=== PATIENT | female | born 1965 | race Caucasian/White ===

== ENCOUNTER → 2016-12-26 | Outpatient (CLI) | payer BC ==
[~2016-12-26] MED LIST: AVLX/400; LRT5
--- NOTE | 2016-12-26 12:45 | DIAGNOSTIC IMAGING REPORT ---
THORACIC SPINE 3 VIEWS ROUTINE HISTORY: Pain LOWER BACK PAIN, SACRAL PAIN COMPARISON: None. FINDINGS: Mild scoliosis. Moderate degenerative disc change throughout the entire thoracic region. No acute compression deformity. No subluxation. IMPRESSION: Mild scoliosis. Moderate degenerative disc change throughout the entire thoracic region. The above report was generated using voice recognition software. It may contain grammatical, syntax or spelling errors. Electronically signed by: Ad Sterling M.D. 12/26/2016 12:43 PM Dictated Date/Time: 12/26/2016 12:43 PM
--- NOTE | 2016-12-26 12:48 | DIAGNOSTIC IMAGING REPORT ---
L-SPINE FLEX/EXT BENDING MIN 6 CLINICAL HISTORY: 51 years-old Female presenting with LOWER BACK PAIN, SACRAL PAIN. TECHNIQUE: Frontal, bilateral oblique, and lateral views of the lumbar spine with coned-down lateral view of the lumbosacral junction were obtained. COMPARISON: None. FINDINGS: Vertebral bodies maintain normal height and alignment. Intervertebral disc spaces preserved. Anterior osteophytosis noted at L1-2 and to a lesser extent at L2-3. No osseous neural foraminal narrowing. No radiographic evidence of acute fracture or subluxation. Transitional lumbosacral anatomy of the left L5 transverse process. Nonobstructive bowel gas pattern. IMPRESSION: Transitional lumbosacral anatomy of L5. Although this is most commonly asymptomatic, this can be a cause for back pain. Correlate clinically. No radiographic evidence of significant degenerative change or acute osseous injury. Electronically signed by: Raul Guzman M.D. 12/26/2016 12:47 PM Dictated Date/Time: 12/26/2016 12:44 PM
--- NOTE | 2016-12-26 12:55 | DIAGNOSTIC IMAGING REPORT ---
PELVIS/BILATERAL HIP 2 VIEWS CLINICAL HISTORY: 51 years-old Female presenting with LOWER BACK PAIN, SACRAL PAIN. TECHNIQUE: Single frontal view of the pelvis and frontal and frog-leg lateral views of the bilateral hips. COMPARISON: None. FINDINGS: Bilateral hip joints congruent. Sacroiliac joints unremarkable. Arcuate lines of the sacrum intact. Pubic symphysis congruent. No acute fracture or malalignment. Nonobstructive bowel gas pattern in the pelvis. IMPRESSION: No acute osseous injury of the pelvis or bilateral hips. Electronically signed by: Raul Guzman M.D. 12/26/2016 12:54 PM Dictated Date/Time: 12/26/2016 12:52 PM
== END | disposition home or self-care (01) ==
LOC: C.RDSM 11:44
PROVIDERS: ATTEND Physician Assistant
DX: M54.5 Low back pain (principal); M54.89 Other dorsalgia; M25.552 Pain in left hip

== ENCOUNTER → 2017-08-29 | Outpatient (CLI) | payer OTHER | LOC: C.PAPS 11:39 | PROVIDERS: ATTEND Obstetrics & Gynecology | DX: N93.8 Other specified abnormal uterine and vaginal bleeding (principal) ==

== ENCOUNTER → 2017-08-29 | Outpatient (CLI) | payer OTHER ==
[2017-08-29 12:22] LABS: HEMOGLOBIN 13.5 g/dL (12.0-16.0); MEAN CELL VOLUME 93.1 fL (80-100); MEAN CORPUSCULAR HEMOGLOBIN 32.2 pg (25-34); MEAN CORPUSCULAR HGB CONC 34.6 g/dl (32-36); PLATELET COUNT 280 K/uL (130-400); RED CELL DISTRIBUTION WIDTH CV 12.3 % (11.5-14.5); RED CELL DISTRIBUTION WIDTH SD 41.7 fL (36.4-46.3); WHITE BLOOD COUNT 8.22 K/uL (4.8-10.8)
== END ==
LOC: C.LAB1850 10:10
PROVIDERS: ATTEND Obstetrics & Gynecology
DX: N93.8 Other specified abnormal uterine and vaginal bleeding (principal)

== ENCOUNTER → 2017-09-22 | Outpatient (CLI) | payer OTHER ==
--- NOTE | 2017-09-25 08:09 | MAMMOGRAPHY REPORT ---
BILATERAL DIGITAL SCREENING MAMMOGRAM TOMOSYNTHESIS WITH CAD: 09/22/2017 CLINICAL HISTORY: Routine screening. Patient has no complaints. TECHNIQUE: Breast tomosynthesis in addition to standard 2D mammography was performed. Current study was also evaluated with a Computer Aided Detection (CAD) system. COMPARISON: Comparison is made to exams dated: 01/27/2015 mammogram, 12/25/2013 mammogram, 04/20/2010 mammogram - [facility], 06/10/2008, and 12/05/2007. BREAST COMPOSITION: There are scattered areas of fibroglandular density in both breasts. FINDINGS: No suspicious masses, calcifications, or areas of architectural distortion are noted in ei ther breast. There has been no significant interval change compared to prior exams. Bilateral asymme tries are stable, including a small focal asymmetry in the right 12:00 breast which is stable dating back to at least the 2013 exam. Scattered bilateral benign-appearing calcifications are also stable. IMPRESSION: ACR BI-RADS CATEGORY 2: BENIGN There is no mammographic evidence of malignancy. A 1 year screening mammogram is recommended. The pa tient will receive written notification of the results. Approximately 10% of breast cancers are not detected with mammography. A negative mammographic report should not delay biopsy if a clinically suggestive mass is present. Albina Vargas M.D. ah/:09/22/2017 15:43:31 Director Export: Ryann LIPSCOMB(Kavin)(M), [facility] letter sent: Normal 1/2 BI-RADS Code: ACR BI-RADS Category 2: Benign
== END | disposition home or self-care (01) ==
LOC: C.MAMM 14:46
PROVIDERS: ATTEND Physician Assistant
DX: Z12.31 Encounter for screening mammogram for malignant neoplasm of breast (principal)

== ENCOUNTER → 2017-09-25 | Outpatient (CLI) | payer OTHER | END | disposition home or self-care (01) | LOC: C.PATHSPEC 13:27 | PROVIDERS: ATTEND Obstetrics & Gynecology | DX: N93.8 Other specified abnormal uterine and vaginal bleeding (principal) ==

== ENCOUNTER 2020-08-28 07:31 | Inpatient (IN) ==
--- NOTE | 2020-08-10 14:39 | PAT Medication Instructions ---
Medication Instructions Date of Service August 10, 2020 Home Medications albuterol sulfate 2 puff INHALATION Q4H PRN fluticasone furoate-vilanterol [Breo Ellipta] 1 inh INHALATION QAM meloxicam 7.5 mg PO BID PRN montelukast 10 mg PO HS ASK your surgeon for instructions meloxicam 7.5 mg PO BID PRN Take morning of surgery With a small sip of water, OTHERWISE NOTHING TO EAT OR DRINK AFTER MIDNIGHT: albuterol sulfate 2 puff INHALATION Q4H PRN (if needed) fluticasone furoate-vilanterol [Breo Ellipta] 1 inh INHALATION QAM Take evening before surgery albuterol sulfate 2 puff INHALATION Q4H PRN (if needed) montelukast 10 mg PO HS Other Notes If you have any questions please call us at [phone] or [phone] or [phone] or [phone]
--- NOTE | 2020-08-11 11:27 | Anesthesiology Consultation ---
Date of Service August 11, 2020 Assessment & Plan (1) Encounter for pre-operative examination: COVID Status: As of 08/11 assessment, patient denies travel to endemic area, known exposure/sick contacts, or symptoms of COVID19. Patient instructed that they and their household members must follow strict social distancing guidelines, wear a mask in public and avoid travel/events/gatherings for 14 days prior to surgery. Preoperative COVID19 testing to be completed prior to surgery per surgeon's arrangements (08/21). Patient made aware to self-isolate as much as possible between COVID testing and surgery. Chart Review Chart Review: Acceptable Risk for Surgery and Patient seen in Pre Admission Testing Teaching & Discussion Instructed NPO after midnight before surgery, except medications with 15 cc of water. Medication instructions provided according to the PAT guidelines. History Surgery Operation Date: 08/28/20 12:45 Proposed Procedures p C6 Corpectomy, Spinal Cord Monitoring - Emmett Bolivar, Height/Weight Height: 5 ft 1 in Weight: 70.5 kg Allergies Allergy/AdvReac Type Severity Reaction Status Date / Time Penicillins Allergy Intermediate TONGUE Verified 08/04/20 08:34 SWELLING Medications Home Medications Medication Instructions Recorded Confirmed Last Taken albuterol sulfate 2 puff INHALATION Q4H PRN 08/04/20 08/04/20 Unknown fluticasone furoate-vilanterol 1 inh INHALATION QAM 08/04/20 08/04/20 Unknown [Breo Ellipta] meloxicam 7.5 mg PO BID PRN 08/04/20 08/04/20 Unknown montelukast 10 mg PO HS 08/04/20 08/04/20 Unknown Past Medical History Medical History Asthma Daily Breo, albuterol once/month on average Chronic back pain NECK AND ON OCC LOWER BACK Chronic obstructive pulmonary disease Pre-diabetes LOST WT INTENTIONALLY-15 LBS-NO MEDS Temporomandibular joint disorder RIGHT SIDE CLICKS ON OCC-NO LOCKING Exercise / Class Metabolic Activity II 4-5 Yardwork/Stairs/Walk up hill Past Family History Family History Aunt Family history of diabetes mellitus Uncle Family history of diabetes mellitus Past Surgical History Surgical History History of section X 2 History of colonoscopy AGE 51 History of tonsillectomy S/P wrist surgery LEFT LIGAMENT REPAIR Past Anesthesia History No Hx of Anesthesia Complications and No Family Hx of Anesthesia Complications History of PONV No Hx of PONV and No Hx of Motion Sickness STOP BANG Total 1 Social History Smoking Status: Current every day smoker Smoking cigarettes per day: 5 CIGS A DAY Do You Dip or Chew Tobacco: No Hx Alcohol Use: No Hx Substance Use: No Review of Systems Pt denies any recent chest pain, shortness of breath, palpitations, cough, fever, URI, or uncontrolled acid reflux. Physical Exam Vital Signs BP: 106/69 P: 75bpm SPO2: 96% RA T: 97.9 F R: 16 ENMT Mouth: + dentures (partial, but does not wear them); no chipped teeth and no loose teeth Thyromental Distance: > or= 3.5 Finger Breadths Mallampati Class: I Neck normal visual inspection; neck extension not limited Respiratory Auscultation: + rhonchi (expiratory, especially in bases) and + wheezes (inspiratory, diffuse) Cardiovascular RRR, no murmur, no edema Testing Laboratory Results 08/11/20 11:30 08/11/20 11:30 PT 10.3 Seconds (9.0-12.0) 08/11/20 11:30 INR 1.0 (0.9-1.1) 08/11/20 11:30 APTT 26.3 Seconds (21.0-31.0) 08/11/20 11:30 Urine Color Yellow 08/11/20 11:30 Urine Appearance Clear (Clear) 08/11/20 11:30 Urine pH 8.0 (4.5-7.5) H 08/11/20 11:30 Ur Specific [place] 1.008 (1.000-1.030) 08/11/20 11:30 Urine Protein Negative (Negative) 08/11/20 11:30 Urine Glucose (UA) Negative (Negative) 08/11/20 11:30 Urine Ketones Negative (Negative) 08/11/20 11:30 Urine Nitrite Negative (Negative) 08/11/20 11:30 Ur Leukocyte Esterase Negative (Negative) 08/11/20 11:30 Blood Type O Negative 08/11/20 11:30 Antibody Screen NEGATIVE 08/11/20 11:30 Electrocardiogram Date: 12/23/19 Findings: + NSR @ (76bpm) RSR' or QR pattern in V1 suggests RVCD. Chest X-Ray Date: 08/11/20 Findings: + NAD
[2020-08-11 12:22] LABS: Basophils # (auto) 0.01 K/uL (0-0.2); Basophils % (auto) 0.1 %; Hematocrit (blood only) 38.3 % (37-47); Hemoglobin 13.4 g/dL (12.0-16.0); Immature Granulocytes # (auto) 0.06 K/uL (0.00-0.02); Immature Granulocytes % (auto) 0.7 %; Lymphocytes # (auto) 1.11 K/uL (1.2-3.4); Lymphocytes % (auto) 12.8 %; Mean Corpuscular Volume 94.3 fL (80-100); Mean Platelet Volume 9.1 fL (7.4-10.4); Monocytes % (auto) 3.5 %; Neutrophils % (auto) 82.9 %; Platelet Count 292 K/uL (130-400); RDW Standard Deviation 45.2 fL (36.4-46.3); Red Blood Count 4.06 M/uL (4.2-5.4); White Blood Count 8.68 K/uL (4.8-10.8)
[2020-08-11 12:23] LABS: Appearance Urine Clear (Clear); Bilirubin Urine Negative (Negative); Blood Urine Negative (Negative); Color Urine Yellow; Glucose Urine UA Negative (Negative); Ketones Urine Negative (Negative); Leukocyte Esterase Urine Negative (Negative); Nitrite Urine Negative (Negative); Protein Urine Negative (Negative); Specific Gravity Urine 1.008 (1.000-1.030); Urobilinogen Urine Negative (Negative)
[2020-08-11 12:32] LABS: Partial Thromboplastin Time 26.3 Seconds (21.0-31.0); Prothrombin Time 10.3 Seconds (9.0-12.0)
--- NOTE | 2020-08-11 12:43 | XRay Report ---
XR chest Pre-admission PA/Lat HISTORY: 55 years-old Female pat preoperative exam. No acute chest complaints COMPARISON: Chest radiographs 05/21/2014 TECHNIQUE: PA and lateral views of the chest FINDINGS: Cardiomediastinal and hilar silhouettes are within normal limits. There is no pneumothorax, pleural e ffusion, airspace consolidation or overt pulmonary edema. Bones of the chest appear grossly intact. IMPRESSION: No acute process. ACT 112: Negative or not required by law. The above report was generated using voice recognition software. It may contain grammatical, syntax o r spelling errors. Electronically signed by: Richi Sims M.D. 08/11/2020 12:42 PM
[2020-08-11 14:10] LABS: BUN Creatinine Ratio 16.3 (10-20); Calcium 8.9 mg/dl (8.5-10.1); Est GFR (African American) 99.9; Est GFR (Non-African American) 86.2; Potassium 3.8 mmol/L (3.5-5.1)
[~2020-08-28 07:31] MED LIST changes: +ACETAMINOPHEN 500 MG TAB PO SCH; -AVLX/400; +CLINDAMYCIN 600 MG/54 ML BAG IV SCH; +CeleBREX 200 MG CAP PO SCH; +GABAPENTIN 900 MG DOSE PO SCH; +LR 15ML/HR IV SCH; -LRT5; +MIDAZOLAM HCL 1 MG/ML 2ML VIAL ONE; +fentaNYL citrate 100 MCG/2 ML VIAL ONE
--- NOTE | 2020-08-28 08:40 | History & Physical Bridge Note ---
Date of Service August 28, 2020 History & Physical Bridge Note I have examined the patient, reviewed the History & Physical and in the interval since the performance of the History & Physical I have noted the following changes of clinical significance: no changes noted
--- NOTE | 2020-08-28 08:40 | History & Physical Report ---
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 Failing course of nonoperative care she is here for surgical invention. Allergies Allergy/AdvReac Type Severity Reaction Status Date / Time Penicillins Allergy Intermediate TONGUE Verified 08/28/20 08:07 SWELLING Home Medications Medication Instructions Recorded Confirmed Type albuterol sulfate 2 puff INHALATION Q4H PRN 08/04/20 08/28/20 History fluticasone furoate-vilanterol 1 inh INHALATION QAM 08/04/20 08/28/20 History [Breo Ellipta] meloxicam 7.5 mg PO BID PRN 08/04/20 08/28/20 History montelukast [Singulair] 10 mg PO HS 08/04/20 08/28/20 History Past Med/Surg History Medical History Asthma Daily Breo, albuterol once/month on average Chronic back pain NECK AND ON OCC LOWER BACK Chronic obstructive pulmonary disease Pre-diabetes LOST WT INTENTIONALLY-15 LBS-NO MEDS Temporomandibular joint disorder RIGHT SIDE CLICKS ON OCC-NO LOCKING Surgical History History of section X 2 History of colonoscopy AGE 51 History of tonsillectomy S/P wrist surgery LEFT LIGAMENT REPAIR Family History Aunt Family history of diabetes mellitus Uncle Family history of diabetes mellitus Social History Smoking Status: Current every day smoker Cigarettes Per Day: 5 CIGS A DAY; Second Hand Exposure: Yes (PARENTS SMOKED/SO LUISANA SMOKES); Do You Dip or Chew Tobacco: No; Hx Alcohol Use: No Hx Substance Use: No Preferred Language: Palestinian Communication Ability: Effective Cheese Weigher Required: No Beliefs That Will Affect Care: None Current Living Situation: Significant Other Other Information That Helps Us Care for You: No Feels Safe at Home: Yes Safety Concerns: Feels Safe At This Time Assistive Devices: Denture - Upper and Glasses Assistive Devices Comment: PARTIALS-DOES NOT WEAR Physical Exam Physical Exam: Patient is alert and oriented Heart regular in rhythm Lungs clear to auscultation Results & Data ([facility]) Vital Signs (Past 12 Hours) Vital Signs Temp Pulse Resp BP Pulse Ox 08/28/20 08:08 36.7 C 80 18 142/83 H 97
[2020-08-28] MEDS ORDERED: ALBUT/IPRATROP 3MG/0.5MG NEB 3 ML VIAL NEB STA (08:42)
[2020-08-28] MEDS ORDERED: HYDROmorphone INJ 2 MG/ML SYR/VIAL IV PRN (08:44)
[2020-08-28] MEDS ORDERED: PROMETHAZINE HCL 12.5 MG in SODIUM CHLORIDE 0.9% 50 ML IV PRN ×2 (08:44→12:46)
[2020-08-28] MEDS ORDERED: ePHEDrine sulfate 50 MG/ML AMP IV PRN (08:44)
[2020-08-28] MEDS ORDERED: ATROPINE SULFATE 0.1 MG/ML 10ML SYR IV PRN (08:44)
[2020-08-28] MEDS ORDERED: ONDANSETRON INJ 2 MG/ML 2 ML VIAL IV PRN ×2 (08:44→12:46)
[2020-08-28] MEDS ORDERED: BACITRACIN INJ 50,000 UNIT VIAL ONE (09:04)
[2020-08-28] MEDS ORDERED: PROPOFOL IV EMULSION 10 MG/ML 20 ML VIAL IV ONE (09:48)
[2020-08-28] MEDS ORDERED: NEOSTIGMINE METHYLSULFATE 1 MG/ML 10ML VIAL ONE (09:48)
[2020-08-28] MEDS ORDERED: GLYCOPYRROLATE 0.2 MG/ML VIAL ONE (09:48)
[2020-08-28] MEDS ORDERED: LARYING-O-JET KIT (LTA) ONE (09:48)
[2020-08-28] MEDS ORDERED: ONDANSETRON INJ 2 MG/ML 2 ML VIAL ONE (09:48)
[2020-08-28] MEDS ORDERED: LIDOCAINE HCL 2% 2 ML VIAL/AMP(20MG/ML) INFIL ONE (09:48)
[2020-08-28] MEDS ORDERED: DEXAMETHASONE SOD INJ 4 MG/ML VIAL ONE (09:48)
[2020-08-28] MEDS ORDERED: fentaNYL citrate 100 MCG/2 ML VIAL ONE (09:49)
[2020-08-28] MEDS ORDERED: FLOSEAL HEMOSTATIC MATRIX 10ML TOP ONE (09:56)
[2020-08-28] MEDS ORDERED: SUCCINYLCHOLINE 100MG/5ML SYR IV ONE (10:00)
[2020-08-28] MEDS ORDERED: ROCURONIUM BROMIDE 10 MG/ML 5 ML VIAL IV ONE (10:46)
--- NOTE | 2020-08-28 10:53 | Operative Report ---
Post Operative Report Pre & Post Diagnosis Operation Date: 08/28/20 09:10 Pre-Op Diagnosis: Spinal Stenosis, Cervical Region Post-Op Diagnosis: Spinal Stenosis, Cervical Region I identified the patient and participated in the time-out.: Yes Procedure Operation Date: 08/28/20 09:10 Actual Procedures #1 Anterior cervical corpectomy with bilateral foraminotomies C6. #2 anterior cervical arthrodesis C5-C7. #3 placement of 20 mm peek cage C5-C7. #4 placement of locally harvested morselized autograft combined with I factor in the interbody cage. #5 application of person plate and screws across C5-C6. Surgeon Emmett Bolivar, DO Nuclear Test Technician Trever Crowder Estimated Blood Loss 50 Findings Consistent with Post-Op Diagnosis Specimens None Indications This is a 55-year-old female presents with above-mentioned diagnosis after failing course of nonoperative care is here for surgical invention. Description of Procedure Patient met with identified informed consent obtained. Patient was then taken to the operative suite underwent ablation placed in spine position Jose Daniel table head Hoang head ordered. All bony prominences well-padded eyes inspected to ensure no external pressure placed upon the. This point the anterior cervical spine was prepped and draped in a sterile fashion. The assistance of fluoroscopy identified the C6 vertebral body and a transverse incision was placed along the right anterior aspect of the cervical spinal lines region. Sharp dissection with assistance of bipolar electrocautery performed down to and exposing anterior cervical spine from C5-C7. Self-retaining retractors placed. Then performed a complete discectomy of C5-6 out to the uncovertebral joints bilaterally followed by C6-C7. Self-retaining retractors placed. Then performed a complete discectomy of C5-6 out to the uncovertebral joints bilaterally followed by C6-C7. [place] distraction pins were then placed in C5 and c 7 to distract across the C6 vertebral body. I then performed a complete corpectomy of C6 including removal of all posterior annular fibers longitudinal ligament bilateral foraminotomies performed. The endplates were then burred to subcortical leading bone and a 23 mm peek cage filled with locally harvested morselized autograft and I factor tapped in position. Distracting apparatus was removed all anterior osteophytes burred to a smooth cortical surface and a 5 complete screws applied with the assistance of fluoroscopy. The incision was then copiously irrigated explored to ensure no damage to surrounding structures remaining bleeding. 10 round HIMANSHU drain inserted. Incision was then closed with 2 Vicryl in the fashion of 4 Monocryl for final skin closure. Steri-Strips dressings placed. Patient will continue PACU stable condition. Please note spinal cord monitoring was utilized at the procedure no changes noted. Lastly Trever Crowder was present at the entire procedure involved the patient positioning complex portions of the surgery and final skin closure. I attest to the content of the Intraoperative Record and any orders documented therein. Any exceptions are noted below.
--- NOTE | 2020-08-28 11:12 | Fluoroscopy Report ---
FL cervical 2-3V CLINICAL HISTORY: C6 CORPECTOMY COMPARISON STUDY: None FLUOROSCOPY TIME: 12 seconds. NUMBER OF FLUOROSCOPIC IMAGES: 2 FINDINGS: 2 intraoperative fluoroscopic spot images reveal postsurgical changes of a C6 corpectomy. T here is anterior metallic plate with C5 and C7 screws. IMPRESSION: Intraoperative fluoroscopic spot images revealing postsurgical changes of a C6 corpectom y and anterior fusion. ACT 112: Negative or not required by law. Electronically signed by: Alexis Fontanez M.D. 08/28/2020 11:11 AM
[2020-08-28] MEDS: fentaNYL citrate 100 MCG/2 ML VIAL IV PRN ×2 (11:25→11:42)
--- NOTE | 2020-08-28 11:27 | Anesthesiology Progress Note ---
Date of Service August 28, 2020 Anesthesia Post Procedure Vital Signs Vital Signs: Temp Pulse Resp BP Pulse Ox 08/28/20 09:07 80 16 99 08/28/20 08:08 36.7 C 80 18 142/83 H 97 Transfer of Care Handoff Completed per policy Notes Mental Status: alert / awake / arousable and participated in evaluation Patient Amnestic to Procedure: Yes Nausea / Vomiting: adequately controlled Pain: adequately controlled Airway Patency, RR, SpO2: stable & adequate BP & HR: stable & adequate Hydration State: stable & adequate Anesthetic Complications: no major complications apparent and Pt Satisfied with anesthetic care
[2020-08-28] MEDS ORDERED: DO NOT ADMINISTER PNEUMOCOCCAL VACCINE PRN (12:46)
[2020-08-28] MEDS ORDERED: FAMOTIDINE 20 MG TAB PO PRN (12:46)
[2020-08-28] MEDS ORDERED: ACETAMINOPHEN 500 MG TAB PO PRN (12:46)
[2020-08-28] MEDS ORDERED: SOD PHOSPHATE/SOD BIPHOSPHATE ENEMA 132 ML BTL PR PRN (12:46)
[2020-08-28] MEDS ORDERED: ONDANSETRON 4 MG OD TAB PO PRN (12:46)
[2020-08-28] MEDS ORDERED: dexAMETHasone 8 MG in SYRINGE 0 ML IV PRN (12:46)
[2020-08-28] MEDS ORDERED: METOCLOPRAMIDE HCL INJ 5 MG/ML 2 ML VIAL IV PRN (12:46)
[2020-08-28] MEDS ORDERED: LORazepam 0.5 MG/1 ML VIAL IV PRN (12:46)
[2020-08-28] MEDS ORDERED: NALOXONE HCL 0.4 MG/1 ML VIAL/CARP IV PRN (12:46)
[2020-08-28] MEDS ORDERED: MAGNESIUM HYDROXIDE SUSP 30 ML UDC PO PRN (12:46)
[2020-08-28] MEDS ORDERED: oxyCODONE HCL IR 5 MG TAB (IMMEDIATE RELEASE) PO PRN (12:46)
[2020-08-28] MEDS ORDERED: ALUMINUM/MAGNESIUM SUSP 30 ML UDC PO PRN (12:46)
[2020-08-28] MEDS ORDERED: traMADol HCL 50 MG TABLET PO PRN (12:46)
[2020-08-28] MEDS ORDERED: hydrOXYzine HCl 25 MG TAB PO PRN (12:46)
[2020-08-28] MEDS ORDERED: DO NOT ADMINISTER FLU VACCINE PRN (12:46)
[2020-08-28] MEDS ORDERED: diphenhydrAMINE Capsule 25 MG CAP PO PRN (12:46)
[2020-08-28] MEDS ORDERED: RACEPINEPHRINE 2.25% NEBU SOLN 0.5 ML VIAL INH PRN (12:46)
[2020-08-28] MEDS ORDERED: ACETAMINOPHEN 1,000 MG/100 ML VIAL IV PRN (12:46)
[2020-08-28] MEDS ORDERED: HYDROmorphone INJ 1 MG/ML SYRINGE IV PRN (12:46)
[2020-08-28] MEDS ORDERED: LORazepam 0.5 MG TAB PO PRN (12:46)
--- NOTE | 2020-08-28 13:13 | Hospitalist Consultation ---
Date of Consultation August 28, 2020 Assessment & Plan (1) Cervical radiculopathy: (2) History of cervical spinal surgery: - Pain management, bowel regimen ordered, no DVT ppx status post spinal surgery per the primary team - PT/OT consults, CM to assist with discharge planning - Follow am CBC to monitor for acute blood loss, follow HIMANSHU drain outs (3) Chronic back pain: - Secondary to the above, continue pain management (4) Chronic obstructive pulmonary disease: - Continue Breo Ellipta, albuterol inh, Singular - Encourage tobacco cessation-discussed at bedside-patient smokes 5 to 6 cigarettes daily, started at age 6. Discussed improved healing with smoking cessation and the patient expressed understanding, she is encouraged to possibly quit smoking during this admission as she has not felt the need for cigarette throughout her time here. - Continuous pulse ox monitoring (5) Asthma: - Stable, inhalers as above (6) Pre-diabetes: - Not on medication, lost about 15 lbs of weight 2 years ago, however has gained much of this back - Follow glucose with BMP. A1c as per PCP (7) DVT prophylaxis: - teds, scds CODE: Full code Dispo: From home, likely to remain in the hospital x 1-2 days. Thank you for involving us in the care of Ms Mcintyre. Please do not hesitate to call with questions or concerns. At this time medicine service will follow along. Supervising Physician Co-Signing Physician Notes I have seen and examined the patient and have discussed the case with the provider above. I agree with the assessment and plan as stated. She is doing well post-operatively. She does have a chronic cough and some wheezing on exam which she reports is chronic. She denies any SOB, fevers or chills. She denies any other symptoms at this time. Reviewed medication list and agree with above. Thank you for this consultation. We will follow with this patient throughout their hospitalization. DO Sunday History of Present Illness Reason for Consultation: Medical management Requesting Physician: Dr. Bolivar Attending Physician: Emmett Bolivar DO History of Present Illness This is a 55 yo F with PMHx of chronic back pain, COPD, asthma, pre-diabetes, current tobacco use, who presented for elective C6 corpectomy with bilateral foraminotomies, cage placement from C5-C7 by Dr. Bolivar on 08/28/20. The patient is doing well s/p surgery. She denies pain in the neck or back currently, and reports that she received Dilaudid around 11:30 AM last which has made her feel much more relaxed. Patient tolerated some clear liquids at lunch without any difficulty, no dysphagia or swelling in her mouth, tongue or throat, no nausea or vomiting. Patient is still smoking, 5 to 6 cigarettes/day and started when she was 6 years old, as her her father encouraged his children to smoke cigars with him occasionally. Patient reports that she had lost about 15 pounds 2 years ago when she was told she was prediabetic, unfortunately has gained the majority of this weight back since she has been unable to participate in large amounts of activity due to her chronic back pain/neck pain. She is hopeful that she will be able to lose a bit of weight after the surgery wand pain improvement. Pt reports living at home with her boyfriend who was recently laid off for the next 2 weeks, therefore has help for whenever she is discharged home. Allergies Allergy/AdvReac Type Severity Reaction Status Date / Time Penicillins Allergy Intermediate TONGUE Verified 08/28/20 08:07 SWELLING Home Medications Medication Instructions Recorded Confirmed Type Breo Ellipta 1 inh INHALATION QAM 08/04/20 08/28/20 History albuterol sulfate 2 puff INHALATION Q4H PRN 08/04/20 08/28/20 History meloxicam 7.5 mg PO BID PRN 08/04/20 08/28/20 History montelukast [Singulair] 10 mg PO HS 08/04/20 08/28/20 History oxycodone 5 mg PO Q6H PRN #2 tab 08/29/20 Rx tramadol 50 mg PO Q6H PRN #20 tab 08/29/20 Rx Patient History Medical History (Updated 08/28/20 @ 13:07 by Kenya Clemons PA-C) Asthma Daily Breo, albuterol once/month on average Chronic back pain NECK AND ON OCC LOWER BACK Chronic obstructive pulmonary disease Pre-diabetes LOST WT INTENTIONALLY-15 LBS-NO MEDS Temporomandibular joint disorder RIGHT SIDE CLICKS ON OCC-NO LOCKING Surgical History (Updated 08/28/20 @ 13:07 by Kenya C Filipowicz, PA-C) History of section X 2 History of colonoscopy AGE 51 History of tonsillectomy S/P wrist surgery LEFT LIGAMENT REPAIR Family History Aunt Family history of diabetes mellitus Uncle Family history of diabetes mellitus Social History Smoking Status: Current every day smoker Cigarettes Per Day: 5 CIGS A DAY; Second Hand Exposure: Yes (PARENTS SMOKED/SO LUISANA SMOKES); Do You Dip or Chew Tobacco: No; Hx Alcohol Use: No Hx Substance Use: No Preferred Language: [place] Islander Communication Ability: Effective Hospital Internship Required: No Beliefs That Will Affect Care: None marital status: Life Partner Current Living Situation: Significant Other Other Information That Helps Us Care for You: No Feels Safe at Home: Yes Safety Concerns: Feels Safe At This Time Assistive Devices: Brace/Splint/Immobilizer Assistive Devices Comment: PARTIALS-DOES NOT WEAR Review of Systems Review of Systems: Constitutional: No fever, sweats or chills Eyes: No diplopia, no worsening or blurred vision ENT: normal hearing, no trouble swallowing Respiratory: + Occasional dry smokers cough, no sputum, dyspnea at rest or on exertion Cardiovascular: No chest pain, tightness or palpitations Abdomen: No pain, nausea, vomiting, diarrhea or constipation Musculoskeletal: No joint pain, calf pain, swelling Neurologic: No weakness, numbness/tingling, or balance problems Psychiatric: No anxiety or depression Skin: No rash or itch Physical Exam Physical Exam: General: awake, alert, no apparent distress, BMI 28.9 Head: Normocephalic, atraumatic ENT: PERRL, EOMI, no pharyngeal exudate, mucous membranes moist Neck: Anterior dressing C/D/I, HIMANSHU drain in place draining small amount of serosanguineous fluids, cervical collar in place. Chest: Clear to auscultation, on 2L via NC, no adventitious breath sounds Cardiac: Regular rate and rhythm, no murmur, no JVD, normal peripheral pulses, good capillary refill Abdominal: NABS x 4 quadrants, soft, nondistended, nontender to palpation, no rebound or guarding Extremities: Normal inspection, no peripheral edema or erythema, calfs nontender to palpation Psych: Normal mood and affect Neuro: AAO x 3, strength intact bilaterally and rated 5/5, no motor deficits, speech is clear, no peripheral sensory deficits Results & Data Results & Data ([facility]) Vital Signs (Past 12 Hours) Vital Signs Temp Pulse Pulse Resp BP Pulse Ox 08/28/20 12:20 77 13 153/89 H 95 08/28/20 12:10 70 20 150/88 H 96 08/28/20 12:00 36.3 C L 63 18 155/88 H 94 08/28/20 11:50 62 19 151/87 H 96 08/28/20 11:40 63 18 136/81 98 08/28/20 11:30 69 20 154/94 H 99 08/28/20 11:20 69 16 148/86 H 100 08/28/20 11:13 36.5 C 75 21 162/92 H 99 08/28/20 09:07 80 16 99 08/28/20 08:08 36.7 C 80 18 142/83 H 97
[2020-08-28] MEDS: ALBUTEROL HFA 8 GM INHALER INH PRN ×2 (16:29→22:08)
[2020-08-28] MEDS: CLINDAMYCIN 600 MG in DEXTROSE 5% 50 ML IV SCH (17:49)
[2020-08-28] MEDS: LACTATED RINGER'S 1,000 ML IV SCH (19:52)
[2020-08-28] MEDS: HYDROmorphone INJ 0.5 MG/0.5 ML SYR IV PRN (19:52)
[2020-08-28] MEDS ORDERED: DOCUSATE SODIUM/SENNA 50/8.6MG TAB PO SCH (21:00)
[2020-08-28] MEDS ORDERED: MONTELUKAST SODIUM 10 MG TABLET PO SCH (21:00)
[2020-08-29] MEDS: HYDROmorphone INJ 0.5 MG/0.5 ML SYR IV PRN (00:14)
[2020-08-29] MEDS: LACTATED RINGER'S 1,000 ML IV SCH (00:42)
[2020-08-29] MEDS: CLINDAMYCIN 600 MG in DEXTROSE 5% 50 ML IV SCH (01:51)
[2020-08-29] MEDS: POLYETHYLENE (MIRALAX) 17 GM PACK PO SCH ×2 (05:37→11:41)
[2020-08-29] MEDS ORDERED: FLUTICASONE/VILANTEROL 100/25MCG 14 PUFFS/INHALER INH SCH (09:00)
--- NOTE | 2020-08-29 10:32 | Discharge Summary ---
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 Failing course of nonoperative care she is here for surgical invention. Principal Diagnosis Cervical spinal stenosis with radiculopathy Discharge Data Allergies Allergy/AdvReac Type Severity Reaction Status Date / Time Penicillins Allergy Intermediate TONGUE Verified 08/28/20 08:07 SWELLING Consultations 08/28/20 12:46 Consult Hospitalist Routine Procedures Performed Operation Date: 08/28/20 09:10 Actual Procedures p C6 Corpectomy, Spinal Cord Monitoring(Not Applicable) - Emmett Bolivar DO Ordered Studies 08/28/20 09:10 FL cervical 2-3V Routine FL fluoroscopy <1hr Routine Hospital Course (1) Cervical radiculopathy: Patient went anterior cervical discectomy fusion tolerated so was taken to orthopedic for possibly. Postop day 1 she was swallowing well no hoarseness. Arm symptoms markedly improved. HIMANSHU drain decreasing appropriately. Excellent strength testing. Subsequently discharged home. Discharge orders instructions were on the chart for further review. Total Time Total Time Spent Total Time Spent (In Minutes): 20 minutes Discharge Plan Discharge Items Patient Disposition: Home - Self-Care Reason For Visit: Spinal Stenosis, Cervical Region Discharge Diagnosis: Cervical spinal stenosis with myeloradiculopathy Activity: As commented below Non-emergency contact: Primary Care Provider Call non-emergency contact if: you have any medication questions Follow-up/Referrals: Chelsea Carey CRNP [Primary Care Provider] - Diet: Regular Addtl Attending Provider Instructions: ACTIVITY RECOMMENDATIONS: SELF CARE INSTRUCTIONS AFTER CERVICAL FUSIONS 1. No smoking. Smoking drastically decreases the chance of a solid fusion. 2. No bending, lifting more than 5 pounds, or twisting (roll like a log when turning in bed). 3. You may shower 3 days after surgery. Thoroughly dry wound. Do not soak in the tub. 4. Cervical collar: Must be worn at all times including sleeping. You may remove the brace only to bath, eat and if you are sitting in a recliner. 5. Please walk as much as you can for exercise. Gradually increase the distance that you walk as your endurance increases. SPECIAL CARE INSTRUCTIONS: VERY IMPORTANT TO READ AND REVIEW A. Do not take any anti-inflammatory medications (i.e. Indocin, Advil, Aspirin, Naprosyn, Aleve, Motrin, etc.) as these may inhibit the chance of a solid fusion. Tylenol is okay to take. B. Your surgical incision has been closed with a cosmetic suture under the skin that will dissolve in about 6 weeks. In 14 days, you can use a pair of clean scissors and cut the suture that is left outside of the skin at the ends of your incision. C. Complications are uncommon, but please contact us if you have any signs or symptoms of: 1. wound infection (fever higher than 102.5 degrees F, redness, separation of wound, drainage, or increasing pain from the incision) 2. blood clots in legs (pain, swelling, redness and warmth in legs) 3. urinary tract infection (fever higher than 102.5 degrees, burning upon urination or increased frequency of urination) 4. nerve problems (inability to walk on your toes or heels, numbness, loss of bowel or bladder control) 5. any other symptoms that concern you. D. Please call the office at if you have any concerns or questions about your operation or recovery. MANAGING PAIN AFTER SPINAL SURGERY 1. Narcotic medication is intended for short-term use and will be provided for surgical pain. Surgical pain usually lasts for a period of 4-6 weeks. Narcotic medication includes Percocet, Vicodin, Darvocet, Tylenol #3 or Lortab. 2. Longer-term pain is more appropriately treated with non-narcotic medication such as Tylenol ES. 3. Muscle spasm is not appropriately treated with narcotics. Muscle relaxers such as Soma, Flexeril or Skelaxin can be used along with Tylenol ES. 4. Remember that we all live with some "aches and pains". This is not unusual or uncommon after an injury or as we get older. 5. We will provide appropriate medication within the normal guidelines of their prescribed use. We will also be very cautious and aware of potential abuse and extended duration of patients' medication needs. 6. Please allow 2-3 days to process refills. Prescriptions will not be mailed but must be picked up at the office. FOLLOW UP VISIT: Keep your scheduled follow-up appointment. Any questions, please call the office at . Pending Studies at Discharge: No Stand-Alone Forms: [facility] [employer], Smoking Cessation Medications and DC Order Prescriptions: New tramadol 50 mg tablet 50 mg PO Q6H PRN (Reason: pain, moderate) Qty: 20 RF: 0 oxycodone 5 mg tablet 5 mg PO Q6H PRN (Reason: pain, severe) Qty: 2 RF: 0 Continued meloxicam 7.5 mg Tablet 7.5 mg PO BID PRN (Reason: Pain) RF: 0 montelukast [Singulair] 10 mg Tablet 10 mg PO HS RF: 0 albuterol sulfate 90 mcg/actuation Hfa Aerosol Inhaler 2 puff INHALATION Q4H PRN (Reason: Wheezing) RF: 0 Breo Ellipta 100-25 mcg/dose Blister With Device 1 inh INHALATION QAM RF: 0 Discharge Orders: Discharge Order (Routine); Ordered 08/29/20 Ordered By: Emmett Bolivar Admission Data Admit Date/Time: 08/28/20 11:20 Attending Provider: Emmett Bolivar Admit Provider: Emmett Bolivar Primary Care Provider: Chelsea Carey Other Providers: Alondra Brand
[2020-08-29 10:34] LABS: Hematocrit (blood only) 37.5 % (37-47); Hemoglobin 12.7 g/dL (12.0-16.0); Mean Corpuscular Hemoglobin 32.5 pg (25-34); Mean Corpuscular Hgb Conc 33.9 g/dL (32-36); Mean Corpuscular Volume 95.9 fL (80-100); Mean Platelet Volume 8.9 fL (7.4-10.4); Platelet Count 195 K/uL (130-400); Red Blood Count 3.91 M/uL (4.2-5.4); White Blood Count 14.72 K/uL (4.8-10.8)
[2020-08-29 11:16] LABS: Calcium 9.1 mg/dl (8.5-10.1); Creatinine Clr Calc Pharmacy 98.8 ml/min; Est GFR (African American) 121.1; Est GFR (Non-African American) 104.5; Potassium 3.6 mmol/L (3.5-5.1)
[2020-08-30] MEDS ORDERED: bisacodyL 10 MG SUPP PR PRN (10:54)
--- NOTE | 2020-09-02 09:34 | Coding Query ---
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 Please assist us with the question(s) below: Please place an X within the parenthesis (x). The following diagnosis listed in this patient's medical record require physician assistance to determine if they were present on admission (POA) or not. Please advise for each diagnosis whether it was present on admission, not present on admission, or if it was clinically undetermined. 1. Cervical spinal stenosis with myeloradiculopathy is documented on Discharge Summary. PLEASE SPECIFY REGARDING ONLY THE MYELOPATHY: ( x) Present On Admission ( ) Not Present On Admission ( ) Clinically Undetermined ( ) Ruled-Out Thank you Adriana Livingston *Definition of the present on admission (POA)-Present on admission is defined as present at the time the order for inpatient admission occurs. Conditions that develop during an outpatient encounter prior to a written order for inpatient admission (including emergency department, observation, or outpatient surgery) are considered present on admission. JUAN F
== END 2020-08-29 13:28 | disposition home or self-care (01) | DRG 472 ==
LOC: ASU 07:31 → 3E 11:20